=== PATIENT | male | born 1985 | race Asian ===

== ENCOUNTER 2017-06-25 15:48 | Emergency (ER) | payer BC ==
--- NOTE | 2017-06-25 17:56 | UC ---
UC General HPI - HPI Summary HPI Summary: HISTORY OF ANYLOSING SPONDYLITIS, DIAGNOSED SEVERAL YEARS AGO IN [place]. HAS MOVED FROM [place] TO [facility], WOULD LIKE TO HAVE REFERRALS FOR PRIMARY CARE AND FOR RHEUMATOLOGY. HAS CHRONIC UPPER THORACIS PAIN, WELL RIGHT ELBOW PAIN; NO TRAUMA, IMPROVES DURING EVENING, WORSE IN MORNING - History of Current Complaint Chief Complaint: UCGeneralIllness Stated Complaint: BACK PAIN Time Seen by Provider: 06/25/17 17:02 Hx Obtained From: Patient Onset/Duration: Gradual Onset, Lasting Weeks, Still Present Onset Severity: Mild Current Severity: Mild Associated Signs & Symptoms: Positive: Back Pain. Negative: Abdominal Pain, Cough, Chest Pain, Dysuria, Diaphoresis, Edema, Fever, SOB, Trauma - Allergy/Home Medications Allergies/Adverse Reactions: Allergies Allergy/AdvReac Type Severity Reaction Status Date / Time No Known Allergies Allergy Verified 06/25/17 17:20 Home Medications: Home Medications Indomethacin CAP* [Indocin CAP*] 50 mg PO TID PRN 06/25/17 [History Confirmed ] sulfaSALAzine TAB* [Azulfidine TAB*] 1,000 mg PO BID 06/25/17 [History Confirmed 06/25/17] PMH/Surg Hx/FS Hx/Imm Hx Previously Healthy: Yes - Surgical History Surgical History: None - Family History Known Family History: Negative: Renal Disease - Social History Occupation: Employed Full-time Lives: With Family Alcohol Use: None Substance Use Type: None Smoking Status (MU): Never Smoked Tobacco Review of Systems Constitutional: Negative Skin: Negative Eyes: Negative ENT: Negative Respiratory: Negative Cardiovascular: Negative Gastrointestinal: Negative Genitourinary: Negative Motor: Negative Neurovascular: Negative Musculoskeletal: Arthralgia, Myalgia Neurological: Negative Psychological: Negative All Other Systems Reviewed And Are Negative: Yes Physical Exam Triage Information Reviewed: Yes Appearance: Well-Appearing, No Pain Distress, Well-Nourished Vital Signs: Initial Vital Signs Temp 98.2 F 06/25/17 17:16 Pulse 71 06/25/17 17:16 Resp 16 06/25/17 17:16 BP 105/58 06/25/17 17:16 Pulse Ox 100 06/25/17 17:16 Vital Signs Reviewed: Yes Eye Exam: Normal ENT Exam: Normal ENT: Positive: Normal ENT inspection, Hearing grossly normal Dental Exam: Normal Neck exam: Normal Neck: Positive: Supple, Nontender Respiratory Exam: Normal Respiratory: Positive: Chest non-tender, Lungs clear, Normal breath sounds, No respiratory distress Cardiovascular Exam: Normal Cardiovascular: Positive: RRR, No Murmur Abdominal Exam: Normal Musculoskeletal Exam: Normal Musculoskeletal: Positive: Strength Intact, ROM Intact, No Edema Neurological Exam: Normal Psychological Exam: Normal Skin Exam: Normal Course/Dx - Differential Dx - Multi-Symptom Differential Diagnoses: Other - ANKYLOSING SPONDYLITIS Provider Diagnoses: ANKYLOSING SPONDYLITIS Discharge - Discharge Plan Condition: Stable Disposition: HOME Patient Education Materials: Ankylosing Spondylitis (ED) Referrals: [facility] [place] [facility] [place] [Outside] Yuri Gonzales MD [Medical Doctor] - As Soon As Possible Additional Instructions: PHYSICAL THERAPY REFERRAL: You have been prescribed physical therapy. Treatments may include stretching, exercise, application of heat or cold, and other modalities. After an injury, PT can reduce swelling and pain. In recovery, PT is used to restore mobility and strength. Your specific treatment goals are: __x___ Reduction of Swelling (EGS, US, ice as needed) ___x__ Pain Reduction (EGS, US, ice as needed) ___x__ TENS Pack Fitting and Instruction Wound Hydrotherapy ___x__ Preservation of Mobility ____x_ Synagogue of Mobility ___x__ Strength Synagogue ___x__ Work or Sports Hardening This instruction sheet also serves as your PHYSICAL THERAPY REFERRAL! Please take it with you to the therapist, so he/she will be aware of your diagnosis and treatment plan. You may see the physical therapist of your choice for these treatments, but may wish to check with your insurance to be sure the provider you select is covered. It's important to see the doctor to whom you have been referred for follow up.
== END 2017-06-25 17:45 | disposition home or self-care (01) ==
LOC: UCEAST 15:48
DX: M45.9 Ankylosing spondylitis of unspecified sites in spine (principal)
CPT/HCPCS: 99201; G0463

== ENCOUNTER 2017-07-13 09:10 | Emergency (ER) | payer BC ==
[2017-07-13 09:49] VITALS: BP 113/77
--- NOTE | 2017-07-13 11:40 | UC ---
UC General HPI - HPI Summary HPI Summary: TWO DAYS OF DRY NONPRODUCTIVE COUGH FEVER AND BODY ACHES. NO CONGESTION, NO HEADACHE, NO SORE THROAT. NO DIARRHEA OR CONSTIPATION - History of Current Complaint Chief Complaint: UCRespiratory Stated Complaint: COUGH AND ACHES Time Seen by Provider: 07/13/17 10:37 Hx Obtained From: Patient Onset/Duration: Sudden Onset Onset Severity: Mild Current Severity: Mild Pain Intensity: 0 Associated Signs & Symptoms: Positive: Cough, Fever. Negative: Diaphoresis, Edema, Headache, Nausea, Palpitations, Syncope, SOB, Trauma, Vomiting, Wheezing , Weakness - Allergy/Home Medications Allergies/Adverse Reactions: Allergies Allergy/AdvReac Type Severity Reaction Status Date / Time No Known Allergies Allergy Verified 07/13/17 09:43 PMH/Surg Hx/FS Hx/Imm Hx Previously Healthy: Yes - Surgical History Surgical History: None - Family History Known Family History: Negative: Renal Disease - Social History Occupation: Employed Full-time Lives: With Family Alcohol Use: None Substance Use Type: None Smoking Status (MU): Never Smoked Tobacco Review of Systems Constitutional: Fever, Chills Skin: Negative Eyes: Negative ENT: Negative Respiratory: Cough Cardiovascular: Negative Gastrointestinal: Negative Genitourinary: Negative Motor: Negative Neurovascular: Negative Musculoskeletal: Myalgia Neurological: Negative Psychological: Negative All Other Systems Reviewed And Are Negative: Yes Physical Exam Triage Information Reviewed: Yes Appearance: Well-Appearing, No Pain Distress, Well-Nourished Vital Signs: Initial Vital Signs Temp 98 F 07/13/17 09:46 Pulse 93 07/13/17 09:46 Resp 18 07/13/17 09:46 BP 113/77 07/13/17 09:46 Pulse Ox 100 07/13/17 09:46 Vital Signs Reviewed: Yes Eye Exam: Normal ENT Exam: Normal ENT: Positive: Normal ENT inspection, Hearing grossly normal, TMs normal Dental Exam: Normal Neck exam: Normal Neck: Positive: Supple, Nontender, No Lymphadenopathy Respiratory Exam: Other - COUGH Respiratory: Positive: Chest non-tender, Lungs clear, Normal breath sounds, No respiratory distress, No accessory muscle use Cardiovascular Exam: Normal Cardiovascular: Positive: RRR, No Murmur, Pulses Normal, Brisk Capillary Refill Abdominal Exam: Normal Musculoskeletal Exam: Normal Neurological Exam: Normal Psychological Exam: Normal Skin Exam: Normal Course/Dx - Differential Dx - Multi-Symptom Differential Diagnoses: Metabolic Abnormality, Sepsis Provider Diagnoses: UPPER REPIRATORY INFECTION Discharge - Discharge Plan Condition: Stable Disposition: HOME Prescriptions: Albuterol HFA INHALER* [Ventolin HFA Inhaler*] 1 puff INH Q6H PRN #1 mdi PRN Reason: Wheezing Benzonatate CAP* [Tessalon 100 MG CAP*] 100 mg PO TID PRN #15 cap PRN Reason: Cough Patient Education Materials: Acute Bronchitis (ED), Viral Syndrome (ED) Referrals: [facility] [place] [facility]IAN REFERRAL [Outside] No Primary Care Phys,NOPCP [Primary Care Provider] - Additional Instructions: PRIMARY CARE: There are four major types of clinical preventive care: immunizations, screening , behavioral counseling (sometimes referred to as lifestyle changes), and chemoprevention. All four apply throughout the life span. It is important to establish and to have access to a Primary Care Physician, not only for follow- up regrding acute and chronic problems, but also for preventative care.
== END 2017-07-13 10:56 | disposition home or self-care (01) ==
LOC: UCEAST 09:10
DX: J06.9 Acute upper respiratory infection, unspecified (principal)
CPT/HCPCS: 99211; G0463

== ENCOUNTER 2018-04-21 16:14 | Emergency (ER) | payer BC ==
[2018-04-21 16:52] VITALS: BP 120/71
--- NOTE | 2018-04-21 17:11 | UC ---
Complaint Male HPI - HPI Summary HPI Summary: Patient presents with 3-4 day onset right testicular pain. He states the pain is constant, worse on palpation. He denies any injury, trauma, dysuria, or penile discharge. He denies fever, chills or pain with bowel movement. - History of Current Complaint Chief Complaint: UCGU Stated Complaint: PAIN IN SCROTUM Time Seen by Provider: 04/21/18 16:58 Hx Obtained From: Patient Onset/Duration: Sudden Onset, Lasting Days Timing: Constant, Lasting Days Severity Initially: Moderate Severity Currently: Moderate Pain Intensity: 4 Location: Testicle Aggravating Factor(s): Other - aching Alleviating Factor(s): Nothing - Allergies/Home Medications Allergies/Adverse Reactions: Allergies Allergy/AdvReac Type Severity Reaction Status Date / Time No Known Allergies Allergy Verified 04/21/18 16:52 Home Medications: Home Medications NK [No Home Medications Reported] 04/21/18 [History Confirmed 04/21/18] PMH/Surg Hx/FS Hx/Imm Hx Previously Healthy: Yes - Surgical History Surgical History: None - Family History Known Family History: Negative: Renal Disease - Social History Occupation: Employed Full-time Lives: Alone Alcohol Use: Occasionally Substance Use Type: None Smoking Status (MU): Never Smoked Tobacco Review of Systems Constitutional: Negative Skin: Negative Eyes: Negative ENT: Negative Respiratory: Negative Cardiovascular: Negative Gastrointestinal: Negative Genitourinary: Negative, Other - right testicular pain Motor: Negative Neurovascular: Negative Musculoskeletal: Negative Neurological: Negative Psychological: Negative Is Patient Immunocompromised?: No All Other Systems Reviewed And Are Negative: Yes Physical Exam Triage Information Reviewed: Yes Appearance: Well-Appearing Vital Signs: Initial Vital Signs Temp 97.2 F 04/21/18 16:47 Pulse 62 04/21/18 16:47 Resp 16 04/21/18 16:47 BP 120/71 04/21/18 16:47 Pulse Ox 100 04/21/18 16:47 Vital Signs Reviewed: Yes Neck: Positive: 1 Respiratory Exam: Normal Cardiovascular Exam: Normal Abdominal Exam: Normal Male Genital Exam: Positive: Normal Genitalia, Epididymal Tenderness, Scrotum Tenderness (L), Testicular Tenderness (R) Musculoskeletal Exam: Normal Neurological Exam: Normal Psychological Exam: Normal Skin Exam: Normal Complaint Male Course/Dx - Course Course Of Treatment: Patient presents with complaints of 4 day onset right posterior testicular pain, most likely this in epididymytis. I do not have ultrasound imaging today and therefore sent him to the emergency department for further evaluation to rule out testicular torsion, vericocele. hydrocele, or spermatocele as the source of his pain. He verablalized understanding and in agreement with the transfer. Patient drove self to the emergency department. - Differential Dx/Diagnosis Differential Diagnosis/HQI/PQRI: Epididymitis, Testicular Torsion Provider Diagnoses: scrotal pain. testicular pain Discharge - Sign-Out/Discharge Documenting (check all that apply): Discharge/Admit/Transfer - Discharge Plan Condition: Stable Disposition: TRANS [facility] Patient Education Materials: Scrotal Pain (ED), Testicle Pain (ED) Referrals: No Primary Care Phys,NOPCP [Primary Care Provider] - Additional Instructions: Go directly to [facility] emergency department for further evaluation. - Billing Disposition and Condition Condition: STABLE Disposition: EMTALA
== END 2018-04-21 17:15 | disposition short-term general hospital (02) ==
LOC: UCEAST 16:14
DX: N50.811 Right testicular pain (principal); N50.82 Scrotal pain
CPT/HCPCS: 99212; G0463

== ENCOUNTER 2018-04-21 17:49 | Emergency (ER) | payer BC ==
[2018-04-21 18:33] LABS: Urine Appearance Clear; Urine Blood Negative (Negative); Urine Color Colorless; Urine Ketones Negative (Negative); Urine Protein Negative (Negative); Urine Specific Gravity 1.001 (1.010-1.030); Urine Urobilinogen Negative (Negative)
--- NOTE | 2018-04-21 18:51 | RAD ---
INDICATION: Right testicular pain COMPARISON: None TECHNIQUE: Duplex interrogation of the scrotum was performed. FINDINGS: Testicles: The testicles are Normal in size and echogenicity. There is no evidence of testicular mass. There is symmetric flow on Doppler interrogation. There is no evidence of torsion.. The right testis measures 4.6 x 2.7 x 3.1 cm and the left 4.1 x 2.5 x 2.9 cm. There is symmetric flow on Doppler interrogation. Epididymides: There is no evidence of an epididymal mass. The epididymides are normal in size. There is symmetric flow on Doppler interrogation. The right epididymal head measures 1.2 x 1.2 cm and the left 0.9 x 1.1 cm. Hydroceles: There are small bilateral hydroceles. Varicoceles: There are bilateral varicoceles right greater than left. Other: None. IMPRESSION: NO EVIDENCE OF TESTICULAR MASS OR TORSION.
[2018-04-21 19:14] LABS: Hematocrit 38 % (42-52); Hemoglobin 12.4 g/dl (14.0-18.0); Mean Corpuscular HGB Conc 32 g/dl (31-36); Mean Corpuscular Hemoglobin 23 pg (27-31); Mean Corpuscular Volume 71 fL (80-94); Platelet Count 293 10^3/ul (150-450); Red Blood Count 5.39 10^6/ul (4.0-5.4); Red Cell Distribution Width 14 % (10.5-15); White Blood Count 5.7 10^3/ul (3.5-10.8)
[2018-04-21 19:22] LABS: EGFR Non-African American 112.3 (>60)
[2018-04-21 19:38] LABS: ABS Basophils 0.1 10^3/ul (0-0.2); ABS Eosinophils 0.3 10^3/ul (0-0.6); ABS Lymphocytes 1.9 10^3/ul (1.0-4.8); ABS Monocytes 0.5 10^3/ul (0-0.8); ABS Neutrophils 2.9 10^3/ul (1.5-7.7); ABS Nucleated RBC 0 10^3/ul; Eosinophil % 5.5 % (0-6); Lymphocyte % 33.9 % (25-47); Nucleated Red Blood Cells % 0.1
--- NOTE | 2018-04-21 19:49 | ED ---
Complaint/Male - History of Current Complaint Chief Complaint: EDUrogenitalProblems Time Seen by Provider: 04/21/18 18:07 Hx Obtained From: Patient Onset/Duration: Gradual Onset, Lasting Days Timing: Intermittent Severity Initially: Mild Severity Currently: Moderate Location: Testicle Associated Signs And Symptoms: Negative - Risk Factors Testicular Torsion: Negative - Allergies/Home Medications Allergies/Adverse Reactions: Allergies Allergy/AdvReac Type Severity Reaction Status Date / Time No Known Allergies Allergy Verified 04/21/18 17:51 PMH/Surg Hx/FS Hx/Imm Hx Infectious Disease History: No Infectious Disease History: Denies: Hx Clostridium Difficile, Hx Hepatitis, Hx Human Immunodeficiency Virus (HIV), Hx of Known/Suspected MRSA, Hx Shingles, Hx Tuberculosis, Hx Known/ Suspected VRE, Hx Known/Suspected VRSA, History Other Infectious Disease, Traveled Outside the in Last 30 Days - Family History Known Family History: Negative: Renal Disease - Social History Alcohol Use: Rare Substance Use Type: Reports: None Smoking Status (MU): Never Smoked Tobacco Review Of Systems Constitutional: Positive: Negative Skin: Positive: Negative Eyes: Positive: Negative ENT: Positive: Negative Respiratory: Positive: Negative Cardiovascular: Positive: Negative Gastrointestinal: Positive: Negative Genitourinary: Positive: Negative Musculoskeletal: Positive: Negative Neurological: Positive: Negative Psychological: Positive: Negative All Other Systems Reviewed And Are Negative: Yes Physical Exam - Summary Physical Exam Summary: No swelling, erythema, masses, ecchymosis noted to bilateral testicles or penis. No evidence of horizontal lie of testicles. Right testicle mildly tender at the posterior aspect between testicle and perineum. No evidence of penile discharge, abnormality, or genital lesions. Triage Information Reviewed: Yes Vital Signs On Initial Exam: Initial Vitals Temp Pulse Resp BP Pulse Ox 97.8 F 55 17 120/84 99 04/21/18 17:53 04/21/18 17:53 04/21/18 17:53 04/21/18 17:53 04/21/18 17:53 Vital Signs Reviewed: Yes Appearance: Positive: Well-Appearing Skin: Positive: Warm Head/Face: Positive: Normal Head/Face Inspection Eyes: Positive: Normal Neck: Positive: Supple Respiratory/Lung Sounds: Positive: Clear to Auscultation Cardiovascular: Positive: Normal Abdomen Description: Positive: Nontender Male Genital Exam: Positive: Normal Genitalia, No Hernia, Testicular Tenderness (R). Negative: Bleeding, Epididymal Tenderness, Erythema, Hernia Mass, Lesions , Scrotum Tenderness (R), Scrotum Tenderness (L), Testicular Tenderness (L), Urethral Discharge Musculoskeletal: Positive: Normal Neurological: Positive: Normal Psychiatric: Positive: Normal AVPU Assessment: Alert - [place] Coma Scale Best Eye Response: 4 - Spontaneous Best Motor Response: 6 - Obeys Commands Best Verbal Response: 5 - Oriented Coma Scale Total: 15 Diagnostics - Vital Signs Vital Signs Temp Pulse Resp BP Pulse Ox 04/21/18 17:53 97.8 F 55 17 120/84 99 - Laboratory Lab Results: Lab Results 04/21/18 04/21/18 04/21/18 Range/Units 18:24 19:00 19:00 WBC 5.7 (3.5-10.8) 10^3/ul RBC 5.39 (4.0-5.4) 10^6/ul Hgb 12.4 L (14.0-18.0) g/dl Hct 38 L (42-52) % MCV 71 L (80-94) fL MCH 23 L (27-31) pg MCHC 32 (31-36) g/dl RDW 14 (10.5-15) % Plt Count 293 (150-450) 10^3/ul MPV 8.0 (7.4-10.4) um3 Neut % (Auto) 50.2 (38-83) % Lymph % (Auto) 33.9 (25-47) % [place] % (Auto) 9.4 H (0-7) % Eos % (Auto) 5.5 (0-6) % Baso % (Auto) 1.0 (0-2) % Absolute Neuts (auto) 2.9 (1.5-7.7) 10^3/ul Absolute Lymphs (auto) 1.9 (1.0-4.8) 10^3/ul Absolute Monos (auto) 0.5 (0-0.8) 10^3/ul Absolute Eos (auto) 0.3 (0-0.6) 10^3/ul Absolute Basos (auto) 0.1 (0-0.2) 10^3/ul Absolute Nucleated RBC 0 10^3/ul Nucleated RBC % 0.1 Sodium 139 (139-145) mmol/L Potassium 3.9 (3.5-5.0) mmol/L Chloride 105 (101-111) mmol/L Carbon Dioxide 27 (22-32) mmol/L Anion Gap 7 (2-11) mmol/L BUN 13 (6-24) mg/dL Creatinine 0.79 (0.67-1.17) mg/dL Est GFR ( Amer) 144.4 (>60) Est GFR (Non-Af Amer) 112.3 (>60) BUN/Creatinine Ratio 16.5 (8-20) Glucose 93 (70-100) mg/dL Lactic Acid (0.5-2.0) mmol/L Calcium 9.4 (8.6-10.3) mg/dL Total Bilirubin 0.20 (0.2-1.0) mg/dL AST 27 (13-39) U/L ALT 24 (7-52) U/L Alkaline Phosphatase 50 (34-104) U/L C-Reactive Protein 1.59 (< 5.00) mg/L Total Protein 6.8 (6.4-8.9) g/dL Albumin 4.1 (3.2-5.2) g/dL Globulin 2.7 (2-4) g/dL Albumin/Globulin Ratio 1.5 (1-3) Urine Color Colorless Urine Appearance Clear Urine pH 6.0 (5-9) Ur Specific [place] 1.001 L (1.010-1.030) Urine Protein Negative (Negative) Urine Ketones Negative (Negative) Urine Blood Negative (Negative) Urine Nitrate Negative (Negative) Urine Bilirubin Negative (Negative) Urine Urobilinogen Negative (Negative) Ur Leukocyte Esterase Negative (Negative) Urine Glucose Negative (Negative) 04/21/18 Range/Units 19:00 WBC (3.5-10.8) 10^3/ul RBC (4.0-5.4) 10^6/ul Hgb (14.0-18.0) g/dl Hct (42-52) % MCV (80-94) fL MCH (27-31) pg MCHC (31-36) g/dl RDW (10.5-15) % Plt Count (150-450) 10^3/ul MPV (7.4-10.4) um3 Neut % (Auto) (38-83) % Lymph % (Auto) (25-47) % [place] % (Auto) (0-7) % Eos % (Auto) (0-6) % Baso % (Auto) (0-2) % Absolute Neuts (auto) (1.5-7.7) 10^3/ul Absolute Lymphs (auto) (1.0-4.8) 10^3/ul Absolute Monos (auto) (0-0.8) 10^3/ul Absolute Eos (auto) (0-0.6) 10^3/ul Absolute Basos (auto) (0-0.2) 10^3/ul Absolute Nucleated RBC 10^3/ul Nucleated RBC % Sodium (139-145) mmol/L Potassium (3.5-5.0) mmol/L Chloride (101-111) mmol/L Carbon Dioxide (22-32) mmol/L Anion Gap (2-11) mmol/L BUN (6-24) mg/dL Creatinine (0.67-1.17) mg/dL Est GFR ( Amer) (>60) Est GFR (Non-Af Amer) (>60) BUN/Creatinine Ratio (8-20) Glucose (70-100) mg/dL Lactic Acid 1.0 (0.5-2.0) mmol/L Calcium (8.6-10.3) mg/dL Total Bilirubin (0.2-1.0) mg/dL AST (13-39) U/L ALT (7-52) U/L Alkaline Phosphatase (34-104) U/L C-Reactive Protein (< 5.00) mg/L Total Protein (6.4-8.9) g/dL Albumin (3.2-5.2) g/dL Globulin (2-4) g/dL Albumin/Globulin Ratio (1-3) Urine Color Urine Appearance Urine pH (5-9) Ur Specific [place] (1.010-1.030) Urine Protein (Negative) Urine Ketones (Negative) Urine Blood (Negative) Urine Nitrate (Negative) Urine Bilirubin (Negative) Urine Urobilinogen (Negative) Ur Leukocyte Esterase (Negative) Urine Glucose (Negative) Result Diagrams: 04/21/18 19:00 04/21/18 19:00 Lab Statement: Any lab studies that have been ordered have been reviewed, and results considered in the medical decision making process. - Ultrasound No standard instances Ultrasound Interpretation: No Acute Changes - No evidence of torsion or mass. Small bilateral hydroceles. Bilateral varicoceles r>l. Ultrasound Interpretation Completed By: Radiologist Complaint Male Course/Dx - Course Course Of Treatment: Right testicular aching x 5 days. Denies redness, swelling , trauma or penile symptoms, fever, urinary symptoms. Bilateral hydroceles and varicoceles on ultrasound, negative for torsion or mass. Recommend scrotal support and follow-up with urology. Patient leaving for [facility] soon will be given a burn of his ultrasound and follow-up with urology there. Will be called with results of GC chlamydia if positive. - Differential Dx/Diagnosis Provider Diagnoses: Varicoceles. Hydrocele
[2018-04-21] MEDS ORDERED: Ibuprofen TAB* 600 MG PO ONE (20:08)
[2018-04-21 20:32] VITALS: BP 120/77
== END 2018-04-21 20:32 | disposition home or self-care (01) ==
LOC: ED 17:49
DX: I86.1 Scrotal varices (principal); N43.3 Hydrocele, unspecified
CPT/HCPCS: 36415; 76870; 80053; 81003; 83605; 85025; 86140; 87491; 87591; 99282; A9270-GY